=== PATIENT | male | born 1975 | race Caucasian/White ===

== ENCOUNTER 2017-07-10 06:48 | Day surgery (SDC) | payer OTHER ==
[~2017-07-10 06:48] MED LIST: Lactated Ringers 1,000 ML IV SCH
[2017-07-10] MEDS ORDERED: Ondansetron 4 MG/2 ML SDV IVPUSH ONE (08:00)
[2017-07-10] MEDS ORDERED: Midazolam 1 MG/ML 2 ML SDV IV ONE (08:00)
[2017-07-10] MEDS ORDERED: ceFAZolin 2 GM in Premix Bag 1 BAG IV ONE ×4 (08:00)
[2017-07-10] MEDS ORDERED: Ketorolac 30 MG/ML SDV IVPUSH ONE (08:00)
[2017-07-10] MEDS ORDERED: Propofol 200 MG/20 ML SDV IV ONE (08:00)
[2017-07-10] MEDS ORDERED: Rocuronium 100 MG/10 ML MDV IV ONE (08:00)
[2017-07-10] MEDS ORDERED: Morphine 10 MG/ML Syringe IVPUSH ONE (08:00)
[2017-07-10] MEDS ORDERED: Neostigmine Methylsulfate 1 MG/ML 5 ML Syringe IV ONE (08:00)
[2017-07-10] MEDS ORDERED: Dexamethasone 4 MG/ML 5 ML MDV IVPUSH ONE (08:00)
[2017-07-10] MEDS ORDERED: ceFAZolin 1 GM Vial IV ONE (08:00)
[2017-07-10] MEDS ORDERED: Lactated Ringers 1,000 ML IV ONE (08:00)
[2017-07-10] MEDS ORDERED: fentaNYL 100 MCG/2 ML SDV IV ONE (08:00)
[2017-07-10] MEDS ORDERED: Acetaminophen/oxyCODONE 325-5 MG Tab PO PRN (10:45)
--- NOTE | 2017-07-20 13:56 | OR ---
DATE OF OPERATION: 07/10/2017 SURGEON: Robert Billings DO PREOPERATIVE DIAGNOSES: 1. Right shoulder rotator cuff tear. 2. Right shoulder impingement. POSTOPERATIVE DIAGNOSES: 1. Right shoulder rotator cuff tear. 2. Right shoulder impingement. PROCEDURES: 1. Right shoulder arthroscopy. 2. Limited debridement, right shoulder. 3. Subacromial decompression. 4. Mini-open rotator cuff repair. DEAD MAIL CHECKER: Kayla Tobin CNP ANESTHESIA: General endotracheal intubation. FLUIDS: Lactated ringer solution. ESTIMATED BLOOD LOSS: Less than 10 mL. COMPLICATIONS: None. SPECIMENS: None. DISCHARGE DISPOSITION: Stable to PACU. INDICATIONS: The patient is well known to me. We had seen him in the clinic. He had failed nonoperative treatment. Preoperative imaging confirmed the above- mentioned diagnosis. Risks and benefits of the procedure were explained to the patient. Informed consent was obtained. DESCRIPTION OF PROCEDURE: The patient was seen preoperatively by myself and the anesthesia staff in the preoperative holding area where the operative site was marked. He was brought to the operative suite by the anesthesia staff, where general anesthesia was administered. He was placed into a beach chair position. All extremities were found to be well padded. The neck was in neutral extension. Everyone in the room agreed that his positioning was correct. The right upper extremity was then prepped and draped in a sterile manner. Time-out was called identifying the correct patient, correct procedure, and the correct site. Antibiotics have been given within an appropriate period of time. A posterior portal was made and the joint was entered with the arthroscopy unit. This did show degenerative changes of the labrum and around the biceps tendon insertion. I then made an anterior portal first with a spinal needle and then entered it with a trocar and then a shaver. I then shaved the frayed labrum and area around the biceps and used an ablation unit to clean up the edges. After this had been performed, I then removed the ablation unit and then, through my posterior portal, I entered the subacromial space. I then made a lateral portal and entered it with a trocar and then a shaver. I then performed a bursectomy with limited debridement and then identified the acromion and cleared soft tissue off the acromion. I then used the ablation unit to remove more soft tissue off the acromion. He did have a type 3 acromion, which was more than was expected, based on preoperative imaging. I then used a odessa to perform the subacromial decompression. After this had been performed, we then removed our instruments from the subacromial space and removed as much fluids as possible. I then made a horizontal incision 1.5 cm lateral to the acromion, extending approximately 4 cm and then went through an area between the anterior and medial raphe of the deltoid and spread this bluntly. I took care not to extend more than 4.5 cm past the acromion, as not to damage to the deltoid nerve. I then was able to find the bursal side of tear and then cleaned up its edges. I then inserted a JuggerKnot anchor and then used the strands to go anteriorly and posteriorly into the cuff and then tied this down. We then copiously irrigated with saline and then closed with StrataFix and nylon. A sterile dressing was then applied. The patient was then allowed to awaken from general anesthesia and taken to the PACU in stable condition. Physician personalized living assistant, Kayla Tobin NP, played an essential role in assisting in this case, helping to position the patient, retract structures as needed, as well as suturing and cutting sutures as indicated. Her presence improved patient's safety and decreased operative time. /[id number] TALAT/ANISA
== END 2017-07-10 12:42 | disposition home or self-care (01) ==
LOC: FB.SDS 06:48
PROVIDERS: ATTEND Orthopaedic Surgery
DX: M75.101 Unspecified rotator cuff tear or rupture of right shoulder, not specified as traumatic (principal); M75.41 Impingement syndrome of right shoulder; Z79.899 Other long term (current) drug therapy; Z87.891 Personal history of nicotine dependence
CPT/HCPCS: 36415; 86850; 86900; 86901; A9270-GY; J0690; J1100; J1885; J2250; J2270; J2405; J2704; J3010; J3360; J7120